=== PATIENT | male | born 1945 | race Caucasian/White ===

== ENCOUNTER 2017-01-11 13:08 | Inpatient (IN) | payer MEDICARE, OTHER ==
[~2017-01-11] VITALS: Ht 182.9 cm; Wt 65.3 kg
[2017-01-11 14:08] LABS: CLARITY URINE CLOUDY (CLEAR); COLOR URINE YELLOW (YELLOW); GLUCOSE URINE NEGATIVE (NEGATIVE); KETONES URINE NEGATIVE (NEGATIVE); LEUKOCYTE ESTERASE URINE 3+ (NEGATIVE); NITRITE URINE POSITIVE (NEGATIVE); OCCULT BLOOD URINE 1+ (NEGATIVE); PROTEIN URINE 1+ (NEGATIVE)
[2017-01-11] MEDS ORDERED: SODIUM CHLORIDE 0.45% 1,000 ML IV SCH (14:10)
[2017-01-11] MEDS ORDERED: GUAIFENESIN 200MG/10ML SUGAR FREE UDC PO PRN (14:15)
[2017-01-11] MEDS ORDERED: HYDROMORPHONE HCL/PF 2MG/ML CPJ IV PRN (14:15)
[2017-01-11] MEDS ORDERED: MAGNESIUM/ALUMINUM HYDROXIDE/SIMETHICONE 30ML UDC PO PRN (14:15)
[2017-01-11] MEDS ORDERED: DIPHENHYDRAMINE 50MG/ML VIAL IV PRN (14:15)
[2017-01-11] MEDS ORDERED: NA PHOS,M-B/NA PHOS,DI-BA ENEMA 118ML PR PRN (14:15)
[2017-01-11] MEDS ORDERED: ONDANSETRON HCL 4MG/2ML VIAL IV PRN ×2 (14:15→18:00)
[2017-01-11] MEDS ORDERED: CLONIDINE 0.1MG TABLET PO PRN ×2 (14:15→18:00)
[2017-01-11] MEDS ORDERED: IPRATROPIUM/ALBUTEROL 0.5-3(2.5)MG/3ML NEB INH PRN ×2 (14:15→18:00)
[2017-01-11] MEDS ORDERED: ACETAMINOPHEN 325MG TABLET PO PRN ×2 (14:15→18:00)
[2017-01-11 14:34] LABS: *AMPHETAMINES SCREEN URINE NEGATIVE (NEGATIVE); *BARBITURATES SCREEN URINE NEGATIVE (NEGATIVE); *BENZODIAZEPINES SCREEN URINE PRESUMTIVE POSITIVE (NEGATIVE); *COCAINE SCREEN URINE NEGATIVE (NEGATIVE); CANNABINOID URINE SCREEN NEGATIVE (NEGATIVE); METHADONE URINE SCREEN NEGATIVE (NEGATIVE); OPIATES URINE SCREEN NEGATIVE (NEGATIVE); PHENCYCLIDINE URINE SCREEN NEGATIVE (NEGATIVE)
[2017-01-11] MEDS: HYDROCODONE/ACETAMINOPHEN 5/325MG TABLET PO PRN (14:39)
[2017-01-11 14:42] LABS: BASOPHILS % 0.4 % (0.0-2.0); EOSINOPHILS % 4.7 % (0.0-5.0); HEMATOCRIT. 32.4 % (42.0-52.0); HEMOGLOBIN. 10.7 g/dL (14.0-18.0); LYMPHOCYTES % 27.1 % (20.0-50.0); MEAN CORPUSCULAR HEMOGLOBIN 29.4 pg (28.0-32.0); MEAN CORPUSCULAR VOLUME 89.1 fL (80.0-94.0); MEAN PLATELET VOLUME 9.1 fl (7.4-10.4); MONOCYTES % 7.5 % (2.0-8.0); NEUTROPHILS % 60.3 % (40.0-76.0); PLATELET 156 x1000/uL (130-400); RED BLOOD CELL COUNT 3.64 mill/uL (4.7-6.1)
[2017-01-11 14:47] LABS: PROTHROMBIN TIME 10.9 sec
[2017-01-11 14:58] LABS: CARBON DIOXIDE 29 mEq/L (21-32); CHLORIDE 106 mEq/L (98-107); ETHANOL BLOOD < 10 mg/dL; TROPONIN I < 0.02 ng/mL (0.00-0.04)
[2017-01-11] MEDS ORDERED: CEFTRIAXONE 1 G PREMIX 50 ML IV ONE (15:15)
[2017-01-11 16:00] VITALS: BP 110/78
[2017-01-11 16:30] VITALS: BP 102/65
[2017-01-11] MEDS ORDERED: HYDROCODONE/ACETAMINOPHEN 5/325MG TABLET PO PRN (18:00)
[2017-01-11] MEDS ORDERED: ENOXAPARIN 40MG/0.4ML SYR SUBCUT SCH ×2 (18:00→21:00)
[2017-01-11] MEDS: DEXT 5%/0.45% NACL 1000ML 1,000 ML IV SCH (18:23)
[2017-01-11] MEDS ORDERED: CEFTRIAXONE 1 G PREMIX 50 ML IV NR (19:00)
[2017-01-11 20:00] VITALS: BP 112/59
[2017-01-11 20:33] LABS: CARBON DIOXIDE 31 mEq/L (21-32); CHLORIDE 103 mEq/L (98-107)
[2017-01-12] VITALS: BP 108/62
[2017-01-12 00:22] LABS: CREATINE KINASE 12 IU/L (39-308); TROPONIN I < 0.02 ng/mL (0.00-0.04)
[2017-01-12] MEDS: LORAZEPAM 2MG/ML CPJ IV PRN (01:01)
[2017-01-12 04:00] VITALS: BP 112/66
[2017-01-12 07:22] LABS: BASOPHILS % 0.6 % (0.0-2.0); EOSINOPHILS % 5.4 % (0.0-5.0); HEMATOCRIT. 28.7 % (42.0-52.0); HEMOGLOBIN. 9.6 g/dL (14.0-18.0); LYMPHOCYTES % 34.6 % (20.0-50.0); MEAN CORPUSCULAR HEMOGLOBIN 29.4 pg (28.0-32.0); MEAN CORPUSCULAR VOLUME 88.1 fL (80.0-94.0); MEAN PLATELET VOLUME 9.5 fl (7.4-10.4); MONOCYTES % 11.1 % (2.0-8.0); NEUTROPHILS % 48.3 % (40.0-76.0); PLATELET 155 x1000/uL (130-400); RED BLOOD CELL COUNT 3.26 mill/uL (4.7-6.1); RED CELL DISTRIBUTION WIDTH 16.5 % (11.6-14.6)
[2017-01-12 08:23] LABS: CARBON DIOXIDE 26 mEq/L (21-32); CHLORIDE 105 mEq/L (98-107); CREATINE KINASE 12 IU/L (39-308); HDL CHOLESTEROL 35 mg/dL (40-59); LDL CHOLESTEROL 50 mg/dL (5-100); TROPONIN I < 0.02 ng/mL (0.00-0.04)
[2017-01-12 08:24] VITALS: BP 97/56
[2017-01-12] MEDS: ASPIRIN 81MG EC TABLET PO SCH (10:13)
[2017-01-12] MEDS: DEXT 5%/0.45% NACL 1000ML 1,000 ML IV SCH (10:14)
[2017-01-12 12:00] VITALS: BP 95/58
[2017-01-12] MEDS ORDERED: SODIUM CHLORIDE 0.9% 1,000 ML IV SCH (13:30)
[2017-01-12] MEDS ORDERED: TEMAZEPAM 15MG CAPSULE PO PRN (13:45)
[2017-01-12] MEDS: PANTOPRAZOLE 40MG DR TABLET PO SCH ×2 (15:27→22:56)
[2017-01-12] MEDS: LITHIUM CARBONATE 150 MG CAPSULE PO SCH (15:28)
[2017-01-12] MEDS: LEVOFLOXACIN 500MG PREMIX 100 ML IV SCH (15:29)
[2017-01-12] MEDS: SODIUM CHLORIDE 0.9% 1,000 ML IV SCH (15:32)
[2017-01-12 16:00] VITALS: BP 98/60
[2017-01-12] MEDS ORDERED: HALOPERIDOL LACTATE 5MG/ML VIAL IM PRN (16:45)
[2017-01-12] MEDS ORDERED: LITHIUM CARBONATE 300 MG PO SCH (17:00)
[2017-01-12 20:00] VITALS: BP 96/59
[2017-01-12] MEDS: ENOXAPARIN 30MG/0.3ML SYR SUBCUT SCH (22:27)
[2017-01-12] MEDS: TEMAZEPAM 15MG CAPSULE PO SCH (22:28)
[2017-01-12] MEDS: HALOPERIDOL LACTATE 5MG/ML VIAL IM PRN (22:28)
[2017-01-13 01:00] VITALS: BP 95/57
[2017-01-13] MEDS: SODIUM CHLORIDE 0.9% 1,000 ML IV SCH ×2 (03:45→17:39)
[2017-01-13 04:00] VITALS: BP 113/65
[2017-01-13] MEDS: PANTOPRAZOLE 40MG DR TABLET PO SCH (06:45)
[2017-01-13 08:00] VITALS: BP 116/66
[2017-01-13 08:14] LABS: CARBON DIOXIDE 26 mEq/L (21-32); CHLORIDE 108 mEq/L (98-107); HDL CHOLESTEROL 32 mg/dL (40-59); LDL CHOLESTEROL 55 mg/dL (5-100)
[2017-01-13] MEDS: LITHIUM CARBONATE 150 MG CAPSULE PO SCH ×2 (08:26→17:38)
[2017-01-13] MEDS: ASPIRIN 81MG EC TABLET PO SCH (08:27)
[2017-01-13 09:21] LABS: HEMATOCRIT. 31.1 % (42.0-52.0); HEMOGLOBIN. 10.2 g/dL (14.0-18.0); MEAN CORPUSCULAR HEMOGLOBIN 29.1 pg (28.0-32.0); MEAN CORPUSCULAR VOLUME 88.5 fL (80.0-94.0); MEAN PLATELET VOLUME 9.6 fl (7.4-10.4); PLATELET 152 x1000/uL (130-400); RED BLOOD CELL COUNT 3.52 mill/uL (4.7-6.1); RED CELL DISTRIBUTION WIDTH 16.6 % (11.6-14.6)
[2017-01-13 12:00] VITALS: BP 112/72
[2017-01-13] MEDS: LORAZEPAM 2MG/ML CPJ IV PRN (12:09)
[2017-01-13] MEDS: LEVOFLOXACIN 500MG PREMIX 100 ML IV SCH (15:00)
[2017-01-13] MEDS: HYDROCODONE/ACETAMINOPHEN 5/325MG TABLET PO PRN (15:23)
[2017-01-13 15:24] LABS: PLATELET ESTIMATE NORMAL
[2017-01-13 16:14] VITALS: BP 117/68
[2017-01-13 20:00] VITALS: BP 109/62
[2017-01-13] MEDS: TEMAZEPAM 15MG CAPSULE PO SCH (20:24)
[2017-01-13] MEDS: ENOXAPARIN 30MG/0.3ML SYR SUBCUT SCH (20:25)
[2017-01-14] VITALS: BP 107/68
[2017-01-14] MEDS: LORAZEPAM 2MG/ML CPJ IV PRN (00:12)
[2017-01-14 04:00] VITALS: BP 114/72
[2017-01-14] MEDS: SODIUM CHLORIDE 0.9% 1,000 ML IV SCH ×2 (05:42→22:17)
[2017-01-14 07:53] VITALS: BP 93/55
[2017-01-14] MEDS: LITHIUM CARBONATE 150 MG CAPSULE PO SCH ×2 (08:21→16:02)
[2017-01-14] MEDS: FAMOTIDINE 20MG TABLET PO SCH ×2 (08:21→20:29)
[2017-01-14] MEDS: ASPIRIN 81MG EC TABLET PO SCH (08:21)
[2017-01-14] MEDS: HALOPERIDOL LACTATE 5MG/ML VIAL IM PRN (08:49)
[2017-01-14 12:00] VITALS: BP 103/63
[2017-01-14] MEDS: LEVOFLOXACIN 500MG PREMIX 100 ML IV SCH (15:55)
[2017-01-14 16:00] VITALS: BP 104/60
[2017-01-14 20:00] VITALS: BP 108/74
[2017-01-14] MEDS: TEMAZEPAM 15MG CAPSULE PO SCH (20:29)
[2017-01-14] MEDS: ENOXAPARIN 30MG/0.3ML SYR SUBCUT SCH (21:00)
[2017-01-15] VITALS: BP 108/71
[2017-01-15 04:00] VITALS: BP 110/75
[2017-01-15 08:00] VITALS: BP 108/76
[2017-01-15] MEDS: LITHIUM CARBONATE 150 MG CAPSULE PO SCH (09:42)
[2017-01-15] MEDS: FAMOTIDINE 20MG TABLET PO SCH ×2 (09:42→20:29)
[2017-01-15] MEDS: ASPIRIN 81MG EC TABLET PO SCH (09:42)
[2017-01-15] MEDS: SODIUM CHLORIDE 0.9% 1,000 ML IV SCH ×2 (09:43→21:45)
[2017-01-15] MEDS: LEVOFLOXACIN 500MG TABLET PO SCH (11:29)
[2017-01-15 12:00] VITALS: BP 110/88
[2017-01-15 16:00] VITALS: BP 108/62
[2017-01-15 20:00] VITALS: BP 112/66
[2017-01-15] MEDS: ENOXAPARIN 30MG/0.3ML SYR SUBCUT SCH (20:30)
[2017-01-15] MEDS: TEMAZEPAM 15MG CAPSULE PO SCH (20:30)
[2017-01-16] VITALS: BP 107/63
[2017-01-16] MEDS: LORAZEPAM 2MG/ML CPJ IV PRN ×2 (03:51→12:12)
[2017-01-16 04:00] VITALS: BP 121/78
[2017-01-16 08:00] VITALS: BP 117/72
[2017-01-16] MEDS: LITHIUM CARBONATE 150 MG CAPSULE PO SCH ×2 (10:08→16:24)
[2017-01-16] MEDS: FAMOTIDINE 20MG TABLET PO SCH ×2 (10:08→20:12)
[2017-01-16] MEDS: ASPIRIN 81MG EC TABLET PO SCH (10:08)
[2017-01-16] MEDS: LEVOFLOXACIN 500MG TABLET PO SCH (10:08)
[2017-01-16] MEDS: SODIUM CHLORIDE 0.9% 1,000 ML IV SCH (10:09)
[2017-01-16 12:00] VITALS: BP 119/73
[2017-01-16 17:09] VITALS: BP 112/68
[2017-01-16 20:00] VITALS: BP 108/70
[2017-01-16] MEDS: TEMAZEPAM 15MG CAPSULE PO SCH (20:12)
[2017-01-16] MEDS: ENOXAPARIN 30MG/0.3ML SYR SUBCUT SCH (20:15)
[2017-01-17] VITALS: BP 109/66
[2017-01-17 04:00] VITALS: BP 124/71
[2017-01-17] MEDS: SODIUM CHLORIDE 0.9% 1,000 ML IV SCH ×2 (06:06→10:46)
[2017-01-17 08:00] VITALS: BP 107/66
[2017-01-17] MEDS: ASPIRIN 81MG EC TABLET PO SCH (09:01)
[2017-01-17] MEDS: DOCUSATE SODIUM 100MG CAPSULE PO PRN (09:01)
[2017-01-17] MEDS: FAMOTIDINE 20MG TABLET PO SCH ×2 (09:01→21:50)
[2017-01-17] MEDS: LITHIUM CARBONATE 150 MG CAPSULE PO SCH ×2 (09:01→17:34)
[2017-01-17] MEDS: LEVOFLOXACIN 500MG TABLET PO SCH (10:45)
[2017-01-17] MEDS ORDERED: LORAZEPAM 2MG/ML CPJ IV PRN (11:15)
[2017-01-17 12:00] VITALS: BP 112/63
[2017-01-17 12:02] LABS: BASOPHILS % 0.3 % (0.0-2.0); EOSINOPHILS % 5.9 % (0.0-5.0); HEMATOCRIT. 29.8 % (42.0-52.0); HEMOGLOBIN. 9.9 g/dL (14.0-18.0); LYMPHOCYTES % 23.6 % (20.0-50.0); MEAN CORPUSCULAR HEMOGLOBIN 29.1 pg (28.0-32.0); MEAN PLATELET VOLUME 8.5 fl (7.4-10.4); MONOCYTES % 7.8 % (2.0-8.0); NEUTROPHILS % 62.4 % (40.0-76.0); PLATELET 150 x1000/uL (130-400); RED BLOOD CELL COUNT 3.39 mill/uL (4.7-6.1)
[2017-01-17 12:17] LABS: CARBON DIOXIDE 27 mEq/L (21-32); CHLORIDE 110 mEq/L (98-107)
[2017-01-17 16:10] VITALS: BP 117/71
[2017-01-17 19:39] VITALS: BP 103/52
[2017-01-17] MEDS: ENOXAPARIN 30MG/0.3ML SYR SUBCUT SCH (21:50)
[2017-01-17] MEDS: TEMAZEPAM 15MG CAPSULE PO SCH (21:50)
[2017-01-18] VITALS: BP 105/50
[2017-01-18] MEDS: SODIUM CHLORIDE 0.9% 1,000 ML IV SCH ×2 (03:54→14:59)
[2017-01-18 04:00] VITALS: BP 109/61
[2017-01-18 08:00] VITALS: BP 96/65
[2017-01-18] MEDS: LITHIUM CARBONATE 150 MG CAPSULE PO SCH (10:17)
[2017-01-18] MEDS: ASPIRIN 81MG EC TABLET PO SCH (10:17)
[2017-01-18] MEDS: FAMOTIDINE 20MG TABLET PO SCH (10:17)
[2017-01-18 10:28] VITALS: BP 125/78
[2017-01-18] MEDS: HALOPERIDOL LACTATE 5MG/ML VIAL IM PRN (11:21)
[2017-01-18] MEDS: LEVOFLOXACIN 500MG TABLET PO SCH (11:22)
[2017-01-18] MEDS: DOCUSATE SODIUM 100MG CAPSULE PO PRN (11:22)
[2017-01-18 12:00] VITALS: BP 110/78
== END 2017-01-18 15:25 | DRG 689 ==
LOC: ER 13:10 → 8WST 15:14 → ENRESERV 15:25 → CANBEDREQ 16:17 → 8WST 01-12 08:10
PROVIDERS: ADMIT Internal Medicine; ATTEND Internal Medicine
DX: N39.0 Urinary tract infection, site not specified (principal); G93.40 Encephalopathy, unspecified; F31.9 Bipolar disorder, unspecified; I10 Essential (primary) hypertension; E86.0 Dehydration; D64.9 Anemia, unspecified; E03.9 Hypothyroidism, unspecified; F29 Unspecified psychosis not due to a substance or known physiological condition; M85.80 Other specified disorders of bone density and structure, unspecified site; Z79.899 Other long term (current) drug therapy
CPT/HCPCS: 36415; 72170; 73552; 80048; 80053; 80061; 80178; 80305; 80307; 80329; 81001; 82550; 82962; 83880; 84439; 84443; 84484; 85025; 85610; 87040; 87077; 87086; 87186; 93005; 93970; 97162; 97530; 99285; G0482; J0696; J1630; J1650; J1956; J2060; J7030

== ENCOUNTER 2020-02-04 22:08 | Emergency (ER) | payer MEDICARE, MEDICAID ==
[~2020-02-04] VITALS: Ht 188 cm; Wt 73.0 kg
[2020-02-04 22:25] VITALS: BP 118/81
== END 2020-02-05 03:49 | disposition home or self-care (01) ==
LOC: ER 22:08
DX: R68.89 Other general symptoms and signs (principal); F20.9 Schizophrenia, unspecified; Z59.0 Homelessness
CPT/HCPCS: 99281

== ENCOUNTER 2020-02-05 03:49 | Inpatient (IN) | payer MEDICARE, MEDICAID ==
[~2020-02-05] VITALS: Ht 167.6 cm; Wt 65.8 kg
[2020-02-05 04:52] LABS: BASOPHILS % 0.5 % (0.0-2.0); EOSINOPHILS % 3.8 % (0.0-5.0); HEMATOCRIT. 32.7 % (42.0-52.0); HEMOGLOBIN. 11.1 g/dL (14.0-18.0); LYMPHOCYTES % 28.6 % (20.0-50.0); MEAN CORPUSCULAR HEMOGLOBIN 30.8 pg (28.0-32.0); MEAN CORPUSCULAR VOLUME 90.9 fL (80.0-94.0); MEAN PLATELET VOLUME 9.9 fl (7.4-10.4); MONOCYTES % 7.8 % (2.0-8.0); NEUTROPHILS % 59.3 % (40.0-76.0); PLATELET 142 x1000/uL (130-400); RED BLOOD CELL COUNT 3.59 mill/uL (4.7-6.1); RED CELL DISTRIBUTION WIDTH 18.8 % (11.6-14.6)
[2020-02-05 04:59] LABS: CHLORIDE 109 mEq/L (98-107)
[2020-02-05 05:04] LABS: ETHANOL BLOOD < 10 mg/dL
[2020-02-05] MEDS ORDERED: HALOPERIDOL LACTATE 5MG/ML VIAL IM ONE (12:00)
[2020-02-05] MEDS ORDERED: NA PHOS,M-B/NA PHOS,DI-BA ENEMA 118ML PR PRN (12:30)
[2020-02-05] MEDS ORDERED: ACETAMINOPHEN 325MG TABLET PO PRN (12:30)
[2020-02-05 13:14] LABS: CLARITY URINE CLEAR (CLEAR); COLOR URINE YELLOW (YELLOW); KETONES URINE NEGATIVE (NEGATIVE); LEUKOCYTE ESTERASE URINE NEGATIVE (NEGATIVE); NITRITE URINE NEGATIVE (NEGATIVE); OCCULT BLOOD URINE NEGATIVE (NEGATIVE); PH URINE 7.5 (4.5-8.0); PROTEIN URINE NEGATIVE (NEGATIVE); SPECIFIC GRAVITY URINE 1.016 (1.005-1.030); UROBILINOGEN URINE 0.2 E.U./dL (0.2-1.0)
[2020-02-05 13:45] LABS: *AMPHETAMINES SCREEN URINE NEGATIVE (NEGATIVE); *BARBITURATES SCREEN URINE NEGATIVE (NEGATIVE); *BENZODIAZEPINES SCREEN URINE NEGATIVE (NEGATIVE); *COCAINE SCREEN URINE NEGATIVE (NEGATIVE); METHADONE URINE SCREEN NEGATIVE (NEGATIVE)
[2020-02-05 13:46] LABS: CANNABINOID URINE SCREEN NEGATIVE (NEGATIVE); OPIATES URINE SCREEN NEGATIVE (NEGATIVE); PHENCYCLIDINE URINE SCREEN NEGATIVE (NEGATIVE)
[2020-02-05 17:50] VITALS: BP 128/66
[2020-02-05 20:00] VITALS: BP 115/70
[2020-02-06] VITALS: BP 119/71
[2020-02-06 04:00] VITALS: BP 104/61
[2020-02-06 07:21] LABS: BASOPHILS % 0.8 % (0.0-2.0); EOSINOPHILS % 5.8 % (0.0-5.0); HEMATOCRIT. 31.1 % (42.0-52.0); HEMOGLOBIN. 10.6 g/dL (14.0-18.0); LYMPHOCYTES % 45.4 % (20.0-50.0); MEAN CORPUSCULAR HEMOGLOBIN 30.7 pg (28.0-32.0); MEAN CORPUSCULAR VOLUME 89.8 fL (80.0-94.0); MONOCYTES % 9.2 % (2.0-8.0); NEUTROPHILS % 38.8 % (40.0-76.0); PLATELET 144 x1000/uL (130-400); RED BLOOD CELL COUNT 3.46 mill/uL (4.7-6.1); RED CELL DISTRIBUTION WIDTH 18.3 % (11.6-14.6)
[2020-02-06 08:00] VITALS: BP 118/78
[2020-02-06 09:19] LABS: CHLORIDE 109 mEq/L (98-107)
[2020-02-06 09:28] LABS: LDL CHOLESTEROL 81 mg/dL (5-100)
[2020-02-06 09:29] LABS: HDL CHOLESTEROL 41 mg/dL (40-59)
[2020-02-06 12:00] VITALS: BP 98/56
[2020-02-06 14:17] LABS: T4 FREE 1.01 ng/dL (0.76-1.46)
[2020-02-06 16:00] VITALS: BP 100/68
[2020-02-06] MEDS ORDERED: HALOPERIDOL LACTATE 5MG/ML VIAL IM PRN (16:15)
[2020-02-06 20:00] VITALS: BP 92/54
[2020-02-07] VITALS: BP 92/46
[2020-02-07 04:00] VITALS: BP 92/50
[2020-02-07 08:00] VITALS: BP 114/65
== END 2020-02-07 15:14 | disposition left against medical advice (07) | DRG 948 ==
LOC: ER 03:49 → ENRESERV 14:50 → 6EST 18:08
PROVIDERS: ADMIT Internal Medicine; ATTEND Internal Medicine
DX: R53.1 Weakness (principal); Z53.29 Procedure and treatment not carried out because of patient's decision for other reasons; Z88.2 Allergy status to sulfonamides
CPT/HCPCS: 36415; 71045; 80053; 80061; 80305; 80307; 80320; 80329; 81003; 84439; 84443; 84481; 84484; 85025; 93005; 93970; 99285; J1630; G0480

== ENCOUNTER 2020-02-07 23:47 | Emergency (ER) | payer MEDICARE, MEDICAID | END 2020-02-08 13:39 | disposition left against medical advice (07) | LOC: ER 02-08 00:08 | DX: Z53.21 Procedure and treatment not carried out due to patient leaving prior to being seen by health care provider (principal) ==

== ENCOUNTER 2020-02-08 22:13 | Emergency (ER) | payer MEDICARE, MEDICAID ==
[~2020-02-08] VITALS: Ht 188 cm; Wt 79.0 kg
[2020-02-08 22:21] VITALS: BP 119/73
== END 2020-02-09 04:00 | disposition left against medical advice (07) ==
LOC: ER 22:13
DX: R68.89 Other general symptoms and signs (principal); Z53.21 Procedure and treatment not carried out due to patient leaving prior to being seen by health care provider

== ENCOUNTER 2020-02-09 16:28 | Emergency (ER) | payer MEDICARE, MEDICAID ==
[~2020-02-09] VITALS: Ht 170.2 cm; Wt 74.0 kg
[2020-02-09] MEDS ORDERED: ACETAMINOPHEN 325MG TABLET PO ONE (17:15)
[2020-02-09] MEDS ORDERED: TETRACAINE 0.5% OPHTH DROPS 4ML RIGHTEYE ONE (18:15)
[2020-02-09] MEDS ORDERED: FLUORESCEIN SODIUM 1MG/STRIP RIGHTEYE ONE (18:15)
[2020-02-09 20:38] VITALS: BP 95/68
== END 2020-02-09 21:18 | disposition short-term general hospital (02) ==
LOC: ER 16:28
DX: S02.40CA Maxillary fracture, right side, initial encounter for closed fracture (principal); S02.2XXA Fracture of nasal bones, initial encounter for closed fracture; S02.85XA Fracture of orbit, unspecified, initial encounter for closed fracture; Z88.2 Allergy status to sulfonamides; Y04.0XXA Assault by unarmed brawl or fight, initial encounter; Y93.89 Activity, other specified; Y92.89 Other specified places as the place of occurrence of the external cause; Y99.8 Other external cause status
CPT/HCPCS: 70486; 99285